=== PATIENT | male | born 1950 | race African-American/Black ===

== ENCOUNTER 2020-08-03 16:21 | Outpatient (REF) | payer OTHER, SELFPAY | END 2020-08-03 16:22 | disposition home or self-care (01) | LOC: HO.LAB 16:21 | PROVIDERS: Visit Provider Internal Medicine | DX: Z20.828 Contact with and (suspected) exposure to other viral communicable diseases (principal) | CPT/HCPCS: C9803; U0003 ==

== ENCOUNTER 2020-08-08 15:11 | Outpatient (REF) | payer OTHER, SELFPAY | END 2020-08-08 15:12 | disposition home or self-care (01) | LOC: HO.LAB 15:11 | PROVIDERS: Visit Provider Internal Medicine | DX: Z20.828 Contact with and (suspected) exposure to other viral communicable diseases (principal) | CPT/HCPCS: 36415; C9803; U0003 ==

== ENCOUNTER 2021-05-11 10:33 | Outpatient (REF) | payer OTHER, SELFPAY ==
[2021-05-11 10:35] LABS: MANUAL DIFF FLAG NO
[2021-05-11 10:53] LABS: Basophils Percent Auto 0.5 % (0-2); Eosinophils Absolute Auto 0.3 X10*3/uL (0.0-0.4); Eosinophils Percent Auto 4.5 % (0-4); Hematocrit 40.8 % (42-52); Hemoglobin 13.5 g/dl (14.0-18.0); Imm Gran Abs Auto 0.02 X10*3/uL (0.00-0.03); Imm Gran Pct Auto 0.3 % (0.0-0.4); Lymphocytes Absolute Auto 3.2 X10*3/uL (1.2-4.9); Lymphocytes Percent Auto 51.1 % (20-40); Mean Corpuscular HGB Conc 33.1 g/dl (31.0-36.0); Mean Corpuscular Hemoglobin 29.2 pg (27.0-33.0); Mean Corpuscular Volume 88.3 fL (80-98); Mean Platelet Volume 10.4 fL (9.4-12.4); Monocytes Absolute Auto 0.7 X10*3/uL (0.1-1.2); Monocytes Percent Auto 10.6 % (2-11); Platelet Count 183 X10*3/uL (160-400); Red Blood Count 4.62 X10*6/uL (4.60-5.80); Red Cell Distribution Width 12.6 % (11.0-16.0); White Blood Count 6.2 X10*3/uL (4.8-10.8)
[2021-05-11 11:00] LABS: Appearance Urine CLEAR; Color Urine YELLOW; Glucose Urine UA NEG (NEG); Leukocyte Esterase Urine NEG (NEG); Nitrite Urine NEG (NEG); Urine Blood NEG (NEG); Urine Ketones NEG (NEG); Urine Protein NEG (NEG-TRACE)
[2021-05-11 11:05] LABS: Alanine Aminotransferase 11 U/L (0-40); Albumin Level 3.9 g/dL (3.5-5.0); Alkaline Phosphatase 70 U/L (39-117); Anion Gap 12 (12-20); Aspartate Amino Transferase 19 U/L (5-37); Bilirubin Total 0.5 mg/dL (0.0-1.0); Blood Urea Nitrogen 12 mg/dL (9-16); Calcium 9.1 mg/dL (8.4-10.2); Carbon Dioxide 25 mmol/L (22-29); Chloride 108 mmol/L (96-108); Cholesterol 158 mg/dL; Estimated Glomerular Filt Rate > 60; Glucose Fasting 93 mg/dL (60-99); HDL Cholesterol 51 mg/dL; LDL Cholesterol Calculated 96 mg/dl; Sodium 141 mmol/L (135-145); Triglycerides 55 mg/dL
[2021-05-11 11:18] LABS: PSA,Total (Free>4and<10) 0.09 ng/mL (0.00-4.00); TSH reflex Free T4 1.72 uIU/mL (0.32-4.0)
== END 2021-05-11 10:34 | disposition home or self-care (01) ==
LOC: HO.LNP 10:33
PROVIDERS: Visit Provider Internal Medicine
DX: Z12.5 Encounter for screening for malignant neoplasm of prostate (principal); R79.89 Other specified abnormal findings of blood chemistry; C61 Malignant neoplasm of prostate; D72.820 Lymphocytosis (symptomatic)
CPT/HCPCS: 80053; 80061; 81003; 84153; 84443; 85025

== ENCOUNTER 2021-06-22 10:14 | Outpatient (REF) | payer SELFPAY ==
[2021-06-22 11:09] LABS: TSH reflex Free T4 1.33 uIU/mL (0.32-4.0)
== END 2021-06-22 10:15 | disposition home or self-care (01) ==
LOC: HO.LNP 10:14
PROVIDERS: Visit Provider Internal Medicine
DX: Z12.5 Encounter for screening for malignant neoplasm of prostate (principal); C61 Malignant neoplasm of prostate; R79.89 Other specified abnormal findings of blood chemistry
CPT/HCPCS: 84153; 84443

== ENCOUNTER 2022-07-08 11:19 | Outpatient (REF) | payer OTHER, SELFPAY ==
[2022-07-08 11:26] LABS: MANUAL DIFF FLAG NO
[2022-07-08 11:50] LABS: Appearance Urine Clear; Color Urine Yellow; Glucose Urine UA Negative (Negative); Leukocyte Esterase Urine Negative (Negative); Nitrite Urine Negative (Negative); PH 5.5 (5.0-9.0); Specific Gravity - Urine 1.025 (1.005-1.025); UMIC TRIGGER UA YES; Urine Blood Trace (Negative); Urine Ketones Negative (Negative); Urine Protein Negative (Neg-Trace)
[2022-07-08 11:54] LABS: Bacteria Urine None Seen (None Seen); Hyaline Casts Urine 0-2 /LPF (0-2); Squamous Epithelial Cell Urine 0-2 /HPF (0-2); WBC Urine 0-5 /HPF (0-5)
[2022-07-08 11:56] LABS: Basophils Percent Auto 0.5 % (0-2); Eosinophils Absolute Auto 0.1 X10*3/uL (0.0-0.4); Eosinophils Percent Auto 2.3 % (0-4); Hematocrit 43.4 % (42.0-52.0); Hemoglobin 14.3 g/dl (14.0-18.0); Imm Gran Abs Auto 0.01 X10*3/uL (0.00-0.03); Imm Gran Pct Auto 0.2 % (0.0-0.4); Lymphocytes Absolute Auto 2.6 X10*3/uL (1.2-4.9); Lymphocytes Percent Auto 47.1 % (20-40); Mean Corpuscular HGB Conc 32.9 g/dl (31.0-36.0); Mean Corpuscular Hemoglobin 29.6 pg (27.0-33.0); Mean Corpuscular Volume 89.9 fL (80.0-98.0); Mean Platelet Volume 10.4 fL (9.4-12.4); Monocytes Absolute Auto 0.6 X10*3/uL (0.1-1.2); Monocytes Percent Auto 10.1 % (2-11); Neutrophils Absolute Auto 2.2 x10*3/uL (2.0-8.3); Neutrophils Percent Auto 39.8 % (45-73); Platelet Count 208 X10*3/uL (160-400); Red Blood Count 4.83 X10*6/uL (4.60-5.80); Red Cell Distribution Width 13.5 % (11.0-16.0); White Blood Count 5.5 X10*3/uL (4.8-10.8)
[2022-07-08 12:48] LABS: Alanine Aminotransferase 17 U/L (0-40); Albumin Level 4.1 g/dL (3.5-5.0); Alkaline Phosphatase 74 U/L (39-117); Anion Gap 11 (12-20); Aspartate Amino Transferase 22 U/L (5-37); Bilirubin Total 0.5 mg/dL (0.0-1.0); Blood Urea Nitrogen 18 mg/dL (9-16); Calcium 8.7 mg/dL (8.4-10.2); Carbon Dioxide 25 mmol/L (22-29); Chloride 109 mmol/L (96-108); Cholesterol 168 mg/dL; Estimated Glomerular Filt Rate > 60; Glucose Fasting 107 mg/dL (60-99); HDL Cholesterol 57 mg/dL; LDL Cholesterol Calculated 99 mg/dl; PSA,Total (Free>4and<10) 0.24 ng/mL (0.00-4.00); Potassium 3.9 mmol/L (3.3-5.1); Sodium 141 mmol/L (135-145); Total Protein 7.3 g/dL (6.5-8.0); Triglycerides 62 mg/dL
== END 2022-07-08 11:20 | disposition home or self-care (01) ==
LOC: HO.LNP 11:19
PROVIDERS: Visit Provider Internal Medicine
DX: Z00.00 Encounter for general adult medical examination without abnormal findings (principal); D72.820 Lymphocytosis (symptomatic); C61 Malignant neoplasm of prostate
CPT/HCPCS: 80053; 80061; 81001; 84153; 85025

== ENCOUNTER 2022-11-11 10:25 | Outpatient (REF) | payer OTHER, SELFPAY ==
[2022-11-11 11:06] LABS: Appearance Urine Clear; Color Urine Yellow; Glucose Urine UA Negative (Negative); Leukocyte Esterase Urine Negative (Negative); Nitrite Urine Negative (Negative); PH 8.5 (5.0-9.0); Urine Blood Negative (Negative); Urine Ketones Negative (Negative); Urine Protein Negative (Neg-Trace)
[2022-11-11 11:09] LABS: Bacteria Urine None Seen (None Seen); Hyaline Casts Urine 0-2 /LPF (0-2); RBC Urine 0-2 /HPF (0-2); Squamous Epithelial Cell Urine 0-2 /HPF (0-2); WBC Urine 0-5 /HPF (0-5)
== END 2022-11-11 10:26 | disposition home or self-care (01) ==
LOC: HO.LNP 10:25
PROVIDERS: Visit Provider Internal Medicine
DX: R31.9 Hematuria, unspecified (principal)
CPT/HCPCS: 81001

== ENCOUNTER 2024-02-11 09:22 | Outpatient (REF) | payer MEDICARE, SELFPAY ==
[2024-02-11 09:51] LABS: MANUAL DIFF FLAG NO
[2024-02-11 10:15] LABS: Basophils Percent Auto 0.7 % (0-2); Eosinophils Absolute Auto 0.1 X10*3/uL (0.0-0.4); Hematocrit 42.1 % (42.0-52.0); Hemoglobin 14.3 g/dl (14.0-18.0); Imm Gran Abs Auto 0.02 X10*3/uL (0.00-0.03); Imm Gran Pct Auto 0.4 % (0.0-0.4); Lymphocytes Absolute Auto 2.1 X10*3/uL (1.2-4.9); Lymphocytes Percent Auto 46.1 % (20-40); Mean Corpuscular Hemoglobin 29.8 pg (27.0-33.0); Mean Corpuscular Volume 87.7 fL (80.0-98.0); Mean Platelet Volume 9.5 fL (9.4-12.4); Monocytes Absolute Auto 0.4 X10*3/uL (0.1-1.2); Monocytes Percent Auto 9.6 % (2-11); Neutrophils Absolute Auto 1.9 x10*3/uL (2.0-8.3); Neutrophils Percent Auto 40.2 % (45-73); Platelet Count 160 X10*3/uL (160-400); Red Cell Distribution Width 12.9 % (11.0-16.0); White Blood Count 4.6 X10*3/uL (4.8-10.8)
[2024-02-11 10:22] LABS: Appearance Urine Clear; Color Urine Yellow; Glucose Urine UA Negative (Negative); Leukocyte Esterase Urine Negative (Negative); Nitrite Urine Negative (Negative); PH 7.5 (5.0-9.0); Specific Gravity - Urine 1.015 (1.005-1.025); Urine Blood Negative (Negative); Urine Ketones Negative (Negative); Urine Protein Negative (Neg-Trace)
[2024-02-11 11:04] LABS: PSA,Total (Free>4and<10) 0.69 ng/mL (0.00-4.00)
[2024-02-11 11:10] LABS: Alanine Aminotransferase 17 U/L (0-40); Albumin Level 3.9 g/dL (3.5-5.0); Alkaline Phosphatase 67 U/L (39-117); Anion Gap 9 (12-20); Aspartate Amino Transferase 21 U/L (5-37); Bilirubin Total 0.8 mg/dL (0.0-1.0); Blood Urea Nitrogen 11 mg/dL (9-16); Carbon Dioxide 26 mmol/L (22-29); Chloride 109 mmol/L (96-108); Cholesterol 167 mg/dL (<200); Estimated Glomerular Filt Rate > 60; Glucose Fasting 94 mg/dL (60-99); HDL Cholesterol 54 mg/dL (>40); LDL Cholesterol Calculated 103 mg/dL (<100); Potassium 3.5 mmol/L (3.3-5.1); Sodium 140 mmol/L (135-145); Thyroid Stimulating Hormone 1.14 uIU/mL (0.32-4.0); Total Protein 7.3 g/dL (6.5-8.0); Triglycerides 50 mg/dL (<150); Vitamin D 25-OH Total 15.6 ng/mL (>30)
[2024-02-11 11:25] LABS: Folate 8.7 ng/mL (> or = 4.0); Vitamin B12 469 pg/mL (200-900)
== END 2024-02-11 09:23 | disposition home or self-care (01) ==
LOC: HO.LAB 09:22
PROVIDERS: PCP Internal Medicine; Visit Provider Internal Medicine
DX: C61 Malignant neoplasm of prostate (principal); Z12.5 Encounter for screening for malignant neoplasm of prostate; Z86.73 Personal history of transient ischemic attack (TIA), and cerebral infarction without residual deficits
CPT/HCPCS: 36415; 80053; 80061; 81003; 82306; 82607; 82746; 84153; 84443; 85025

== ENCOUNTER 2024-09-14 13:47 | Outpatient (AMB) | payer MEDICARE, SELFPAY ==
--- NOTE | 2024-09-14 13:50 | A.OFFPC_ITS ---
Vital Signs 09/14/24 13:55 Height 5 ft 7.5 in Weight 184 lb BMI 28.4 BP 156/66 H Blood Pressure Location Rt brachial Pulse 64 Pulse Source Pulse Oximeter Temp 98.1 F Pulse Oximetry (%) 95 Intake Visit Reasons: Medical clearance to become adoptive parent Intake Note: no other issues Allergies No Known Allergies [No Known Allergies*] Allergy (Verified 09/14/24 15:14) Medication List - Last Reconciled 09/14/24 by Lowell Harris MD levetiracetam 1,500 mg PO BID HPI Medical clearance to become adoptive parent HPI Details 73-year-old male presents to the office requesting an annual physical. He also wishes to get a form filled that allows him to be an adoptive parent. Patient is in the process of adopting a 4-year-old child who is his grandchild through his nephew. Patient had a hemorrhagic stroke with speech difficulties. This was followed by a seizure and currently is on Lamictal 1500 mg twice a day. Patient sees a neurologist at [facility]. Continues to get speech therapy. Patient has some loss of memory but is able to function and do all activities of daily living. Patient is able to drive and take care of himself independently. He is compliant with his medications. [facility] Medical History (Updated 09/14/24 @ 15:18 by Lowell Harris MD) Essential hypertension CVA (cerebrovascular accident due to intracerebral hemorrhage) Physical exam (Primary Care) Vital Signs: Last Vital Signs Temp 98.1 F 09/14/24 13:55 Pulse 64 09/14/24 13:55 BP 156/66 H 09/14/24 13:55 Pulse Ox 95 09/14/24 13:55 Care Plan Goal for BP management: Elevated blood pressure BMI result Body Mass Index 28.4 Const General: cooperative and healthy appearing Nutritional Appearance: well nourished Orientation/consciousness: patient oriented x3 Limitations: no limitations HENMT Head: Yes normal to inspection Eyes General: appearance normal, both eyes and all related structures Neck Neck: Yes normal visual inspection Chest Chest palpation & inspection: normal palpation of entire chest wall Resp Effort & Inspection: normal respiratory effort Neuro General: patient oriented x3 Coding Level of Care Code New Pt Level 3 (70265) New Pt Prev Care >65yr (90577) Diagnoses CVA (cerebrovascular accident due to intracerebral hemorrhage) I61.9 Essential hypertension I10 Annual physical exam Z00.00 Assessment & Plan Assessment & Plan (1) CVA (cerebrovascular accident due to intracerebral hemorrhage): Code(s): I61.9 - Nontraumatic intracerebral hemorrhage, unspecified Category: Medical Plan: Reassurance. Continue speech therapy. (2) Essential hypertension: Code(s): I10 - Essential (primary) hypertension Category: Medical Plan: Blood pressure is slightly elevated. Patient was advised to check blood pre ssures at home and returned to the office in 3 weeks. (3) Annual physical exam: Code(s): Z00.00 - Encounter for general adult medical examination without abnormal findings Plan: Blood work has been ordered, will call with the results. Orders: Orders Complete Blood Count no Diff Today I61.9 - Nontraumatic intracerebral hemorrhage, unspecified Lipid Panel Today I61.9 - Nontraumatic intracerebral hemorrhage, unspecified Liver Panel Today I61.9 - Nontraumatic intracerebral hemorrhage, unspecified Thyroid Stimulating Hormone Today I61.9 - Nontraumatic intracerebral hemorrhage, unspecified UA and rflx microscopic Today I61.9 - Nontraumatic intracerebral hemorrhage, unspecified Basic Metabolic Panel Today I61.9 - Nontraumatic intracerebral hemorrhage, unspecified Erythrocyte Sedimentation Rate Today I61.9 - Nontraumatic intracerebral hemorrhage, unspecified Prostate Specific Antigen Scr Today I61.9 - Nontraumatic intracerebral hemorrhage, unspecified
[2024-09-14 13:55] VITALS: BP 156/66; PULSE 64; TEMP 36.7; O2SAT 95; BMI 28.4
--- OUTSIDE RECORDS SUMMARY | 2024-09-14 14:49 | XMS_ITS ---
Author Organization Wilder Rico DO, FACP Address [address] [place] [address] [phone] Care Team Providers Care Machine Shorthand Reporter Name Role Phone Wilder Rico Primary Care Provider REASON FOR VISIT FYI Encounters Encounter Location Date Provider Diagnosis Wilder Rico DO, FACP [address] [place] [phone] 03/03/2024 Wilder Rico PLAN OF TREATMENT No Information
--- OUTSIDE RECORDS SUMMARY | 2024-09-14 14:49 | XMS_ITS | Patient Health Record ---
Author Organization Wilder Rico DO, [facility] Address [address] [place] [phone] Care Team Providers Care Cutter Grinder Operator Name Role Phone Wilder Rico Primary Care Provider [phone] ALLERGIES No Known Allergies RESULTS Component Value Reference Range Notes Complete Blood Count Auto Di ff Reviewed date:02/11/2024 10:23:39 AM Interpretation:Abnormal Performing Lab:[facility], [address] [place] [phone] Notes/Report: White Blood Count 4.6 4.8-10.8 X10*3/uL Red Blood Count 4.80 4.60-5.80 X10*6/uL Hemoglobin 14.3 14.0-18.0 g/dl Hematocrit 42.1 42.0-52.0 % Mean Corpuscular Volume 87.7 80.0-98.0 fL Mean Corpuscular Hemoglobin 29.8 27.0-33.0 pg Mean Corpuscular HGB Conc 34.0 31.0-36.0 g/dl Red Cell Distribution Width 12.9 11.0-16.0 % Platelet Count 160 160-400 X10*3/uL Mean Platelet Volume 9.5 9.4-12.4 fL Neutrophils Percent Auto 40.2 45-73 % Imm Gran Pct Auto 0.4 0.0-0.4 % Lymphocytes Percent Auto 46.1 20-40 % Monocytes Percent Auto 9.6 2-11 % Eosinophils Percent Auto 3.0 0-4 % Basophils Percent Auto 0.7 0-2 % NRBC Pct Auto 0.0 0.0-0.2 /100WBC Neutrophils Absolute Auto 1.9 2.0-8.3 x10*3/u L Imm Gran Abs Auto 0.02 0.00-0.03 X10*3/uL Lymphocytes Absolute Auto 2.1 1.2-4.9 X10*3/u L Monocytes Absolute Auto 0.4 0.1-1.2 X10*3/uL Eosinophils Absolute Auto 0.1 0.0-0.4 X10*3/u L Basophils Absolute Auto 0.0 0.0-0.2 X10*3/uL NRBC Abs Auto 0.000 0.0-0.012 X10*3/uL Urinalysis Reviewed date:02/11/2024 11:22:05 AM Interpretation:Negative Performing Lab:[facility], [address] [place] [phone] Notes/Report: Color Urine Yellow Appearance Urine Clear PH 7.5 5.0-9.0 Glucose Urine UA Negative Negative mg/dL Urine Blood Negative Negative Specific Hubbell - Urine 1.015 1.005-1.025 Urine Protein Negative Neg-Trace mg/dL Urine Ketones Negative Negative mg/dL Nitrite Urine Negative Negative Leukocyte Esterase Urine Negative Negative Comprehensive [place]. Panel Fa st Reviewed date:02/11/2024 11:22:05 AM Interpretation:Abnormal Performing Lab:[facility], [address] [place] [phone] Notes/Report: Sodium 140 135-145 mmol/L Potassium 3.5 3.3-5.1 mmol/L Chloride 109 96-108 mmol/L Carbon Dioxide 26 22-29 mmol/L Anion Gap 9 12-20 Blood Urea Nitrogen 11 9-16 mg/dL Creatinine 0.89 0.5-1.4 mg/dL Estimated Glomerular Filt Rate > 60 NOTE: For -Kenyan individuals, multiply the result by 1.210. Chronic Kidney Disease: Estimated GFR < 60 mL/min/1.73m2 Severe Kidney Disease: Estimated GFR < 15 mL/min/1.73m2 Glucose Fasting 94 60-99 mg/dL Calcium 9.0 8.4-10.2 mg/dL Bilirubin Total 0.8 0.0-1.0 mg/dL Aspartate Amino Transferase 21 5-37 U/L Alanine Aminotransferase 17 0-40 U/L Total Protein 7.3 6.5-8.0 g/dL Albumin Level 3.9 3.5-5.0 g/dL Alkaline Phosphatase 67 39-117 U/L Lipid Panel Reviewed date:02/11/2024 11:22:05 AM Interpretation:Normal Performing Lab:[facility], [address] [place] [phone] Notes/Report: Triglycerides 50 <150 mg/dL Desirable Triglyceride: less than 150 mg/dL Borderline High Triglyceride 150-199 mg/dL High Triglyceride: 200-499 mg/dL Very High Triglyceride: greater than or equal to 5OO mg/dL Cholesterol 167 <200 mg/dL Desirable Cholesterol: less than 200 mg/dL Borderline High Cholesterol: 200-239 mg/dL High Cholesterol: greater than 239 mg/dL LDL Cholesterol Calculated 103 <100 mg/dL Desirable LDL: less than 100 mg/dL Near Optimal/Above Optimal LDL: 110-129 mg/dL Borderline High LDL: 130-159 mg/dL High LDL: 160-189 mg/dL Very High LDL: greater than or equal to 190 mg/dL HDL Cholesterol 54 >40 mg/dL Desirable HDL: greater than 40 mg/dL Note: This HDL assay may give artificially low results in patients with liver disease. PSA,Total (Free>4and<10) Reviewed date:02/11/2024 11:22:05 AM Interpretation:Normal Performing Lab:[facility], [address] [place] [phone] Notes/Report: PSA,Total (Free>4and<10) 0.69 0.00-4.00 ng/mL A Free PSA was not performed: The percentage of Free PSA can be used to enhance the differentiation of prostate cancer from benign prostatic disease in subjects whose PSA levels are between 4.0 and 10.0 ng/mL. For subjects whose PSA levels are below 4.0 or above 10.0 ng/mL, the risk of prostate cancer is determined on the basis of the PSA alone. Therefore the % Free PSA is recommended only for those subjects whose PSA levels are between 4.0 and 10.0 ng/mL. PSA methodology: [employer] Al[employer] i Chemiluminescent Microparticle Immunoassay (CMIA) Vitamin B12 and Folate Reviewed date:02/11/2024 11:32:51 AM Interpretation:Normal Performing Lab:[facility], [address] [place] [phone] Notes/Report: Vitamin B12 469 200-900 pg/mL NORMAL 200-900 PG/ML INDETERMINATE 160-199 PG/ML DEFICIENT < 160 PG/ML Folate 8.7 > or = 4.0 ng/mL Reference Values: > or = 4.0 ng/mL < 4.0 ng/mL suggests folate deficiency Methotrexate, aminopterin and folinic acid (leucovorin) are chemotherapeutic agents whose molecular structures are similar to folate; therefore, the Seamer folate assay cannot be used for patients using these drugs. Vitamin D 25-OH Total Reviewed date:02/11/2024 11:22:21 AM Interpretation:Abnormal Performing Lab:[address] [phone] Notes/Report: Vitamin D 25-OH Total 15.6 >30 ng/mL Health Based Reference Values* < 20 ng/mL Deficient 20-30 ng/mL Insufficient > 30 ng/mL Sufficient *Jean Paul JOYA. N Engl J Med. 2007;357:266-280 Care must be taken in interpreting Vitamin D results from different laboratories and methodologies. Published data demonstrated that results from patients undergoing hemodialysis may show a negative bias when tested with various automated 25-OH vitamin D assays when compared to LC-MS/MS. When testing samples from patients whose predominant form of Vitamin D is Vitamin D2, such as patients receiving Vitamin D2 supplementation, results that are subtherapeutic should be confirmed with another method such as LC-MS/MS. Thyroid Stimulating Hormone Reviewed date:02/11/2024 11:22:05 AM Interpretation:Normal Performing Lab:[address] [phone] Notes/Report: Thyroid Stimulating Hormone 1.14 0.32-4.0 uIU/ mL TSH 3rd Generation ([facility]) REASON FOR REFERRAL Reason Prostate cancer s/p prostatectomy Low but not undetectable PSA Diagnosis 1 Prostate cancer (C61 ) Referral Organization Wilder Carter, FACP Referring Provider First Name Wilder Referring Provider Last Name Trisha Referring Provider Speciality Internal M edicine Referred Provider Misael Dash Referred Provider Specialty Urology General Notes .Crissy Scott 03/02/20 24 01:08:02 PM EDT > Faxed referral prior to scheduling, Florinda Aguilar 03/03/2024 11:51:32 AM EDT > REFERRAL TO NEXT AVAILABLE PROVIDER. ADDITIONAL RECORDS TO FOLLOW BY SEPARATE FAX, Florinda Aguilar 03/03/2024 04:09:46 PM EDT > referral re-faxed REFERRAL TO NEXT AVAILABLE PROVIDER. ADDITIONAL RECORDS TO FOLLOW BY SEPARATE FAXGaFlorinda quezada 03/03/2024 11:20:46 AM EDT > patient has been discharged from Dr. Barone's practice for non-compliance. Alternate referral?, Wilder Rico 03/03/2024 11:40:57 AM EDT > Jeff KOHLI Joan 03/03/2024 11:53:22 AM EDT > referral faxed; specialist's office will call patient to schedule appointment; patient aware. Referral Priority Routine Referral Appointment Date 04/08/2024 Reason seizure disorder Diagnosis 1 Seizure disorder (G4 0.909) Referral Organization Wilder Carter, [facility] Referring Provider First Name Wilder Referring Provider Last Name Trisha Referring Provider Speciality Internal M edicine Referred Provider Agus Serrano Referred Provider Specialty Neurology General Notes Crissy Scott 03:58:05 PM EDT > Referral faxed prior to scheduling, Florinda Aguilar 06/02/2024 11:04:28 AM EDT > patient was n/s for 05/04 appointment. [facility] will call this office with Don's new appointment. Today's notes faxed.Jeff Joan 06/02/2024 11:28:01 AM EDT > referral faxed to Referral Priority Routine MEDICATIONS Medication SIG (Take, Route, Fr equency, Duration) Notes Start Date End Date Status levETIRAcetam 750 MG 2 tablets Orally Twice a day Active IMMUNIZATIONS Vaccine Route Administration Date Status Comme nts flu vaccine Unknown 07/11/2016 Administered COVID-19 Pfizer BioNTech Unknown 11/04/2020 Administere d COVID-19 Pfizer BioNTech Unknown 07/26/2021 Administere d Shingrix Unknown 03/06/2023 Administered Pneumococcal - PPSV23 Unknown 02/21/2020 Administered Influnza High Dose Quad Unknown 06/30/2020 Administered Influenza High Dose Unknown 04/26/2021 Administered PCV 20 Unknown 03/06/2023 Administered flu vaccine Unknown 05/12/2018 Administered Influenza High Dose Unknown 06/24/2019 Administered COVID-19 Pfizer BioNTech Unknown 11/26/2020 Administere d SOCIAL HISTORY Tobacco Use: Social History Observation Description Date Details (start date - stop date) Never Smoker NA - NA Sex Assigned At : Social History Observation Description Sex Assigned At Unknown Tobacco Use/Smoking Question Answer Notes Patient is a nonsmoker Additional Findings: Tobacco Non-User Cu rrent non-smoker, currently using no form of tobacco Alcohol Screen Question Answer Notes Did you have a drink containing alcohol in the p ast year? 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) Active confirmed 573606225 Problem Cataract of both eyes, unspecified cataract type (H26.9) Active confirmed 93287813 Problem Seizure disorder (G40.909) Active confirmed Seizure disorder (889031033) VITAL SIGNS Blood pressure diastolic 60 mm Hg 06/02/2024 Height 67.75 in 06/02/2024 Blood pressure systolic 104 mm Hg 06/02/2024 Weight 180 lbs 06/02/2024 BMI 27.57 kg/m2 06/02/2024 Encounters Encounter Location Date Provider Diagnosis Wilder Rico DO, [facility] [address] [place], [place] [phone] 03/02/2024 Wilder Rico Prostate cancer C61 ; Secondary seizure disorder G40.909 ; History of CVA (cerebrovascular accident) Z86.73 and Cataract of both eyes, unspecified cataract type H26.9 Wilder Rico DO, [facility] [address] [place], [place] [phone] 06/02/2024 Wilder Rico Prostate cancer C61 and Secondary seizure disorder G40.909 Wilder Rico DO, [facility] [address] [place], [place] [phone] 12/23/2023 Wilder Rico DO, [facility] [address] [place], [place] [phone] 01/13/2024 Wilder Rico DO, [facility] [address] [place], [place] [phone] 02/03/2024 Wilder Rico History of CVA (cerebrovascular accident) Z86.73 and Prostate cancer C61 Wilder Rico DO [facility] [address] [place], [place] [phone] 12/05/2023 Wilder Rico DO, [facility] [address] [place], [place] [phone] 03/03/2024 Wilder Rico DO, [facility] [address] [place], [place] [phone] 06/04/2024 Wilder Rico ASSESSMENTS Encounter Date Diagnosis Assessment Notes Treatment Notes Treatment Clinical Notes 03/02/2024 Prostate cancer (ICD-10 - C61) Erik is s/p prostatectomy. His PSA is low but not undetectable. Will refer to Urology. 03/02/2024 Secondary seizure disorder (ICD-10 - G40.909) Refer to [facility] 06/02/2024 Prostate cancer (ICD-10 - C61) Follow up with Urology. 06/02/2024 Secondary seizure disorder (ICD-10 - G40.909) Follow up with Neurology. 02/03/2024 Prostate cancer (ICD-10 - C61) Will obtain old records to review 02/03/2024 History of CVA (cerebrovascular accident) (ICD-10 - Z86.73) Will obtain old records to review 03/02/2024 History of CVA (cerebrovascular accident) (ICD-10 - Z86.73) Refer to [facility] 03/02/2024 Cataract of both eyes, unspecified cataract type (ICD-10 - H26.9) Erik is an appropriate candidate for the proposed surgical procedures and is medically cleared for surgery. He should take his seizure medication as prescribed 03/02/2024 Other Advise multivit anderson once a day PLAN OF TREATMENT Pending Test Test Name Order Date PSA, total 06/02/2024 Insurance Providers Payer Name Payer Address Payer Phone Subscriber Number Group Number Insured Name Patient Relationship to Insured Coverage Start Date Coverage End Date [employer] [address] [place] [phone] [id number] Erik Reynolds Self - patient is the insured MEDICARE [address] [place] [phone] [id number] Erik Reynolds Self - patient is the insured MEDICAL (GENERAL) HISTORY Medical History History ICD Code cerebrovascular accident prostate cancer s/p prostatectomy hypertension currently on no medication seizure disorder memory loss
--- OUTSIDE RECORDS SUMMARY | 2024-09-14 14:49 | XMS_ITS ---
Author Organization William Samuel MD Address [address] [place] [phone] Care Team Providers Care Cotton Opener Name Role Phone William Samuel Primary Care Provider [phone] REASON FOR VISIT yearly labs Encounters Encounter Location Date Provider Diagnosis William Samuel MD [address] [place] [phone] 10/24/2023 William Samuel Plan Of Treatment No Information Progress Notes * RODOLFOErikDOB:1950 ( 73 yo M)Acc No.[id number]:10/24/2023 Progress Note Patient:?Erik ECHOLS Provider:?William Samuel MD :1950???Age:73 Y???Sex:Male Tano e:10/24/2023 Address:[address] [place] [address] Subjective: * Chief Complaints: * ???1. Yearly labs. * Medical History:? Objective: * Vitals:? Assessment: Plan: * Treatment: * * The named appointment provid er may or may not be the originator of this progress note, and it is not deemed complete until electronically signed by the appointment provider. Sign off status: Pending * Provider:?William Samuel MD Date:?0 10/24/2023 Generated for Printi ng/Fadestinyg/eTransmitting on:?09/14/2024 02:49 PM EST
--- OUTSIDE RECORDS SUMMARY | 2024-09-14 14:49 | XMS_ITS ---
Author Organization Wilder Rico DO, FACP Address [address] [place] [phone] Care Team Providers Care Counter Sales Representative Name Role Phone Wilder Rico Primary Care Provider REASON FOR VISIT Message to self Encounters Encounter Location Date Provider Diagnosis Wilder Rico DO, FACP [address] [place] [phone] 06/04/2024 Wilder Rico PLAN OF TREATMENT No Information
--- OUTSIDE RECORDS SUMMARY | 2024-09-14 14:50 | XMS_ITS | Clinical Summary ---
Author Organization [facility] Address [address] [place] [address] Care Team Providers Care Medical Receptionist Biller Name Role Phone William Samuel MD Primary Care Provider [phone] Allergies No known active allergies Medications No known medications Social History Tobacco Use Types Packs/Day Years Used Date Smoking Tobacco: Never Smokeless Tobacco: Never Alcohol Use Standard Drinks/Week Comments No 0 (1 standard drink = 0.6 oz pur e alcohol) Sex and Gender Information Value Date Recorded Sex Assigned at Not on file Gender Identity Not on file Sexual Orientation Not on file Last Filed Vital Signs Vital Sign Reading Time Taken Comments Blood Pressure 144/77 03/16/2018 12:54 PM EDT Pulse 66 03/16/2018 12:54 PM EDT Temperature 36.8 ??C (98.2 ??F) 03/16/2018 12:54 PM E DT Respiratory Rate 17 03/16/2018 12:54 PM EDT Oxygen Saturation 98% 03/16/2018 12:54 PM EDT Inhaled Oxygen Concentration - - Weight 77.1 kg (170 lb) 03/16/2018 12:54 PM EDT Height - - Body Mass Index - - Plan of Treatment Not on file Care Teams Medical Receptionist Biller Relationship Specialty Start Date End Date William Samuel MD [address] [place] [phone] PCP - General Internal Medicine 03/16/18
--- OUTSIDE RECORDS SUMMARY | 2024-09-14 14:50 | XMS_ITS ---
Author Organization William Samuel MD Address [address] [place] [phone] Care Team Providers Care Scoop Operator Name Role Phone William Samuel Primary Care Provider REASON FOR VISIT annual visit Encounters Encounter Location Date Provider Diagnosis William Samuel MD [address] [place] [phone] 11/14/2023 William Samuel Plan Of Treatment No Information Progress Notes * RODOLFOErikDOB:1950 ( 73 yo M)Acc No.[id number]:11/14/2023 Progress Notes Patient:?Erik ECHOLS Provider:?William Samuel MD :1950???Age:73 Y???Sex:Male Tano e:11/14/2023 Address:[address] [place] [address] Subjective: * Chief Complaints: * ???1. Annual visit. * Medical History:? Objective: * Vitals:? Assessment: Plan: * Treatment: * * The named appointment provid er may or may not be the originator of this progress note, and it is not deemed complete until electronically signed by the appointment provider. Sign off status: Pending * Provider:?William Samuel MD Date:?0 11/14/2023 Generated for Printi ng/Fakay/eTransmitting on:?09/14/2024 02:49 PM EST
--- OUTSIDE RECORDS SUMMARY | 2024-09-14 14:50 | XMS_ITS ---
Author Organization Wilder Rico DO [facility] Address [address] [place] [phone] Care Team Providers Care Virginia Line Attendant Name Role Phone Wilder Rico Primary Care Provider ALLERGIES No Known Allergies REASON FOR VISIT 3 month f/u, Follow up prostate cancer s/p prostatectomy MEDICATIONS Medication SIG (Take, Route, Fr equency, Duration) Notes Start Date End Date Status levETIRAcetam 750 MG 2 tablets Orally Twice a day Active SOCIAL HISTORY Tobacco Use: Social History Observation [...] ast year? No Points 0 Interpretation Negative VITAL SIGNS BMI 27.57 kg/m2 06/02/2024 Blood pressure systolic 104 mm Hg 06/02/20 24 Blood pressure diastolic 60 mm Hg 024 Height 67.75 in 06/02/2024 Weight 180 lbs 06/02/2024 Encounters Encounter Location Date Provider Diagnosis Wilder Rico DO, [address] [phone] 06/02/2024 Wilder Rico Prostate cancer C61 and Secondary seizure disorder G40.909 ASSESSMENTS Encounter Date Diagnosis Assessment Notes Treatment Notes Treatment Clinical Notes 06/02/2024 Prostate cancer (ICD-10 - C61) Follow up with Urology. 06/02/2024 Secondary seizure disorder (ICD-10 - G40.909) Follow up with Neurology. PLAN OF TREATMENT Medication Medication Name Sig Start Date Stop Date Notes levETIRAcetam 750 MG 2 tablets Orally Twice a day Treatment Notes Assessment Notes Prostate cancer Follow up with Urolo gy. Secondary seizure disorder Follow up wit h Neurology. Pending Test Test Name Order Date PSA, total 06/02/2024 Next Appt Details Follow Up: 4 Months, Reason: follow up visit Progress Notes * Examination Category Sub-Category Detail Notes General Examination GENERAL APPEARANCE: in no ac geovanna distress, well developed, well nourished HEAD: normocephalic, atrau matic HEART: no murmurs, regular rate and rhythm, S1, S2 normal LUNGS: clear to auscultatio n bilaterally ABDOMEN: normal, bowel sounds present, soft, nontender, nondistended SKIN: warm and dry EXTREMITIES: no edema PSYCH: alert, oriented, cog nitive function intact
--- OUTSIDE RECORDS SUMMARY | 2024-09-14 14:50 | XMS_ITS ---
Author Organization William Samuel MD Address [address] [place] [phone] Care Team Providers Care Personal Insurance Advisor Name Role Phone William Samuel Primary Care Provider REASON FOR VISIT Medical Records Encounters Encounter Location Date Provider Diagnosis William Samuel MD [address] [place] [address] [phone] 02/16/2024 William Samuel Plan Of Treatment No Information Progress Notes * Erik ECHOLSDOB:1950 ( 73 yo M)Acc No.[id number]:02/16/2024 Patient:?Erik Echols :1950???Age:73 Y???Sex:Male Address:[address] [place] [address], [address] * true * Date:? Generated for Thu jain/Dexter/eTransmitting on:?09/14/2024 02:49 PM EST
--- OUTSIDE RECORDS SUMMARY | 2024-09-14 14:50 | XMS_ITS | Clinical Summary ---
Author Organization [facility] it Address [address] [place] [address] Care Team Providers Care Assistant Spa Manager Name Role Phone William Samuel MD Primary Care Provider Unav ailable Social History Tobacco Use Types Packs/Day Years Used Date Smoking Tobacco: Never Assessed Sex and Gender Information Value Date Recorded Sex Assigned at Not on file Legal Sex Male 4:18 PM EST Gender Identity Not on file Sexual Orientation Not on file Plan of Treatment Health Maintenance Due Date Last Done Comments Pneumococcal Vaccine: 50+ Ye ars (1 of 1 - PCV) 10/07/2001 Zoster Vaccines (1 of 2) 10/07/2001 DTaP,Tdap,and Td Vaccines (2 - Td or Tdap) 12/16/2020 12/16/2010 Abdominal Aortic Aneurysm (A AA) Screen 07/03/2022 Cholesterol Screening (Lipid Panel) 07/03/2022 Colorectal Cancer Screening: Colonoscopy 07/03/2022 Depression Screening 07/03/2022 Falls Risk Assessment 07/03/2022 Hepatitis C Screening 07/03/2022 Social Influencers of Health Screening 07/03/2022 COVID-19 Vaccine ( - 2023-2 5 season) 2024 Influenza Vaccine (#1) 2024 RSV Immunization Patients 60 + Years Old (1 - 1-dose 75+ series) 10/07/2026 HIB Vaccines Aged Out No longer eligi ble based on patient's age to complete this topic HPV Vaccines Aged Out No longer eligi ble based on patient's age to complete this topic Hepatitis A Vaccines Aged Out No long er eligible based on patient's age to complete this topic Hepatitis B Vaccines Aged Out No long er eligible based on patient's age to complete this topic IPV Vaccines Aged Out No longer eligi ble based on patient's age to complete this topic MMR Vaccines Aged Out No longer eligi ble based on patient's age to complete this topic Meningococcal ACWY Vaccine Aged Out N o longer eligible based on patient's age to complete this topic Meningococcal B Vacine Aged Out No lo nger eligible based on patient's age to complete this topic RSV Immunization Patients Un reagan 20 months Aged Out No longer eligible b ased on patient's age to complete this topic Varicella Vaccines Aged Out No longer eligible based on patient's age to complete this topic Care Teams Assistant Spa Manager Relationship Specialty Start Date End Date William Samuel MD [address] [place] [address] PCP - General Internal Medicine 03/16/18
--- OUTSIDE RECORDS SUMMARY | 2024-09-14 14:51 | XMS_ITS | Patient Health Record ---
Author Organization William Samuel MD Address [address] [place] [phone] Care Team Providers Care Electrical Appliance Preparer Name Role Phone William Samuel Primary Care Provider Allergies No Known Allergies Reason For Referral No Information Medications Medication SIG (Take, Route, Frequency, Duration) Notes Start Date End Date Status Ocuflox 0.3 % 1 drop into affected eye Ophthalmic Four times a day for 7 days 11/13/2017 Not-Takin g ProAir HFA 108 (90 Base) MCG/ACT 2 puffs as needed Inhalation every 6 hrs for 30 days 11/13/2017 Not-Taking levETIRAcetam 750 MG 2 tablet Orally Twi ce a day Active Betamethasone Dipropionate Aug 0.05 % 1 application Externally Once a day for 14 days 10/28/2022 Not-Taking Immunizations Vaccine Route Administration Date Status Comme nts zFluzone Quadrivalent IM Intramuscular 07/06/2015 Administ ered Fluarix Quadrivalent IM Intramuscular 07/11/2016 Administe red Fluarix Quadrivalent IM Intramuscular 05/12/2018 Administe red Influenza High Dose IM Intramuscular 06/24/2019 Administer ed PPSV23 (Pnemovax) IM Intramuscular 02/21/2020 Administered SARS-COV-2 Pfizer Unknown 11/04/2020 Administered SARS-COV-2 Pfizer Unknown 11/26/2020 Administered Influenza High Dose IM Intramuscular 04/26/2021 Administer ed Social History Tobacco Use/Smoking Question Answer Notes Additional Findings: Tobacco Non-User Cu rrent non-smoker, currently using no form of tobacco Alcohol Screen Question Answer Notes Did you have a drink containing alcohol in the p ast year? 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) Active confirmed Problem 99429215 Kidney stone on left side (N20.0) Active confirmed Problem 865108958 Cerebral hemorrhage (I61.9) Active confirmed Vital Signs Blood pressure diastolic 86 mm Hg 09/30/2023 joselyn ght is up 4 pounds since 03-25-23 Height 68 in 09/30/2023 weight is up 4 pounds since 03-25-23 Blood pressure systolic 142 mm Hg 09/30/2023 weig ht is up 4 pounds since 03-25-23 Weight 184 lbs 09/30/2023 weight is up 4 pounds since 03-25-23 BMI 27.97 kg/m2 09/30/2023 weight is up 4 pounds since 03-25-23 Encounters Encounter Location Date Provider Diagnosis William Samuel MD [address] [place] [phone] 09/30/2023 William Samuel Herpes zoster with complication B02.8 and Borderline hypertension R03.0 William Samuel MD [address] [place] [address] [id number] 10/13/2023 William Samuel MD [address] [place] [address] [id number] 10/13/2023 William Samuel MD [address] [place] [address] [phone] 02/16/2024 William Samuel Assessments Encounter Date Diagnosis (ICD Code) Assessment Notes Treatment Notes Treatment Clinical Notes Section Notes 09/30/2023 Herpes zoster with complication (ICD-10 - B02.8) appears to be healing zoster by the dermatome distribution 09/30/2023 Borderline hypertension (ICD-10 - R03.0) will recheck in one month Plan Of Treatment Future Test Test Name Order Date XR CHEST 2 VIEW PA & LAT 09/23/2019 Insurance Providers Payer Name Payer Address Payer Phone Subscriber Number Group Number Insured Name Patient Relationship to Insured Coverage Start Date Coverage End Date [employer] [address] [place] [address] [id number] Erik Reynolds Self - patient is the insured Medical (General) History Medical History History ICD Code Colonoscopy - 01/22/16 w/Dr. Mariusz love at 11 yrs
== END 2024-09-14 14:20 | disposition home or self-care (01) ==
LOC: HO.HMCSH 13:47
PROVIDERS: PCP Internal Medicine; Visit Provider Internal Medicine
DX: Z00.00 Encounter for general adult medical examination without abnormal findings (principal); I61.9 Nontraumatic intracerebral hemorrhage, unspecified; I10 Essential (primary) hypertension

== ENCOUNTER → 2024-09-14 13:47 | Outpatient (BNVA) | payer MEDICARE, SELFPAY | PROVIDERS: PCP Internal Medicine; Visit Provider Internal Medicine | DX: Z00.01 Encounter for general adult medical examination with abnormal findings (principal); I10 Essential (primary) hypertension; I61.9 Nontraumatic intracerebral hemorrhage, unspecified | CPT/HCPCS: 99212; 99387 ==

== ENCOUNTER 2024-10-06 10:55 | Outpatient (AMB) | payer MEDICARE, SELFPAY ==
--- NOTE | 2024-10-06 11:03 | MHC.PC.OV ---
Vital Signs 10/06/24 11:06 Height 5 ft 7 in Weight 183 lb BMI 28.7 BP 140/78 H Blood Pressure Location Rt brachial Pulse 76 Pulse Source Pulse Oximeter Temp 97.7 F Pulse Oximetry (%) 98 Intake Visit Reasons: f/u Intake Note: no other issues Allergies No Known Allergies [No Known Allergies*] Allergy (Verified 10/06/24 14:16) Medication List - Last Reconciled 10/06/24 by Lowell Harris MD levetiracetam 1,500 mg PO BID lisinopril 10 mg PO DAILY HPI f/u HPI Details 73 yr old male presents to the office for a follow up visit. Since last OV he did not get blood work done. As requested, he did not record BP readings at home. Comes to the office alone. Reports he is at baseline state of health. Came to the office driving his car. Walked in unassisted. [facility] Medical History (Updated 10/04/24 @ 10:05 by Alma Santos PA-C) Memory loss Seizure disorder History of prostate cancer Essential hypertension CVA (cerebrovascular accident due to intracerebral hemorrhage) Physical exam (Primary Care) Vital Signs: Last Vital Signs Temp 97.7 F 10/06/24 11:06 Pulse 76 10/06/24 11:06 BP 140/78 H 10/06/24 11:06 Pulse Ox 98 10/06/24 11:06 Care Plan Goal for BP management: BP in range. Medication started. BMI result Body Mass Index 28.7 Const General: cooperative and healthy appearing Nutritional Appearance: well nourished Orientation/consciousness: patient oriented x3 Limitations: no limitations HENMT Head: Yes normal to inspection Eyes General: appearance normal, both eyes and all related structures Neck Neck: Yes normal visual inspection Chest Chest palpation & inspection: normal palpation of entire chest wall Resp Effort & Inspection: normal respiratory effort Neuro General: patient oriented x3 Coding Level of Care Code Est Pt Level 4 (03720) Est Pt Prev Care >65y(84924) Diagnoses Essential hypertension I10 Assessment & Plan Assessment & Plan (1) Essential hypertension: Code(s): I10 - Essential (primary) hypertension Category: Medical Plan: Lisinopril started. Encouraged patient to get blood work done. Medications: New lisinopril 10 mg PO DAILY 90 tabs 1RF
[2024-10-06 11:06] VITALS: BP 140/78; PULSE 76; TEMP 36.5; O2SAT 98; BMI 28.7
--- OUTSIDE RECORDS SUMMARY | 2024-10-06 13:14 | XMS_ITS | Clinical Summary ---
Author Organization [facility] Address [address] [place] [address] Care Team Providers Care Carbonator Name Role Phone William Samuel MD Primary Care Provider [phone] Allergies No known active allergies Medications No [...] of Treatment Not on file Care Teams Carbonator Relationship Specialty Start Date End Date William Samuel MD [address] [place] [phone] PCP - General Internal Medicine 03/16/18
--- OUTSIDE RECORDS SUMMARY | 2024-10-06 13:14 | XMS_ITS ---
Author Organization William Samuel MD Address [address] [place] [phone] Care Team Providers Care Investment Banking Associate Name Role Phone William Samuel Primary Care Provider [phone] REASON FOR VISIT yearly labs Encounters Encounter Location Date Provider Diagnosis William Samuel MD [address] [place] [address] [phone] 10/24/2023 William Samuel Plan Of Treatment No Information Progress Notes * RODOLFOErikDOB:1950 ( 73 yo M)Acc No.[id number]:10/24/2023 Progress Note Patient:?Erik ECHOLS Provider:?William Samuel MD :1950???Age:73 Y???Sex:Male Tano e:10/24/2023 Address:[address] [place] [address] Subjective: * Chief Complaints: * ???1. Yearly labs. * Medical History:? Objective: * Vitals:? Assessment: Plan: * Treatment: * * The named appointment provid er may or may not be the originator of this progress note, and it is not deemed complete until electronically signed by the appointment provider. Sign off status: Pending * Provider:?William Samuel MD Date:?0 10/24/2023 Generated for Printi ng/Fadestinyg/eTransmitting on:?10/06/2024 01:14 PM EST
--- OUTSIDE RECORDS SUMMARY | 2024-10-06 13:14 | XMS_ITS ---
Author Organization William Samuel MD Address [address] [place] [phone] Care Team Providers Care Set Up Worker Name Role Phone William Samuel Primary Care Provider REASON FOR VISIT annual visit Encounters Encounter Location Date Provider Diagnosis William Samuel MD [address] [place] [phone] 11/14/2023 William Samuel Plan Of Treatment No Information Progress Notes * RODOLFOErikDOB:1950 ( 73 yo M)Acc No.[id number]:11/14/2023 Progress Notes Patient:?Erik ECHOLS Provider:?William Samuel MD :1950???Age:73 Y???Sex:Male Tano e:11/14/2023 Address:[address] [place] [address] Subjective: * Chief Complaints: * ???1. Annual visit. * Medical History:? Objective: * Vitals:? Assessment: Plan: * Treatment: * * The named appointment provid er may or may not be the originator of this progress note, and it is not deemed complete until electronically signed by the appointment provider. Sign off status: Pending * Provider:?William Samuel MD Date:?0 11/14/2023 Generated for Printi ng/Fakay/eTransmitting on:?10/06/2024 01:14 PM EST
--- OUTSIDE RECORDS SUMMARY | 2024-10-06 13:14 | XMS_ITS ---
Author Organization William Samuel MD Address [address] [place] [phone] Care Team Providers Care Design Director Name Role Phone William Samuel Primary Care Provider REASON FOR VISIT Medical Records Encounters Encounter Location Date Provider Diagnosis William Samuel MD [address] [place] [address] [phone] 02/16/2024 William Samuel Plan Of Treatment No Information Progress Notes * Erik ECHOLSDOB:1950 ( 73 yo M)Acc No.[id number]:02/16/2024 Patient:?Erik Echols :1950???Age:73 Y???Sex:Male Address:[address] [place] [address], [phone] * true * Date:? Generated for Thu jain/Dexter/eTransmitting on:?10/06/2024 01:14 PM EST
--- OUTSIDE RECORDS SUMMARY | 2024-10-06 13:15 | XMS_ITS | Continuity of Care Document ---
Author Organization [facility] Address [address] [facility], [address] Floor, [address] [place] [phone] Care Team Providers Care Lime Kiln Worker Name Role Phone Wilder Rico DO Primary Care Physician [phone] Encounter [facility] Date(s): 09/01/24 - 10/01/24 [facility] [address] [facility] [address], [address] [place] [phone]- Encounter Type: Triage Allergies, Adverse Reactions, Alerts No Known Allergies Immunizations Given and Recorded Vaccine Date Status Refusal Reason tetanus-diphtheria toxoids (Td) 12/16/10 Given Medications bisacodyl 10 mg rectal suppository 1 supp = 10 mg, Rectally, 2 times a day, PRN Constipation, 0 Refills, Maintenance, 12/15/20 3:45:00 PM EDT, Suppository, Partial fill upon patient request if the prescription is for a schedule II opioid drug. Start Date: 12/15/20 Status: Ordered Repeat number: 1 Colace sodium 100 mg oral capsule 100 mg, 1, capsule, By Mouth, 2 times a day, Refills 0, Maintenance, 12/15/20 3:45:00 PM EDT, Partial fill upon patient request if the prescription is for a schedule II opioid drug. Start Date: 12/15/20 Status: Ordered Repeat number: 1 levETIRAcetam 750 mg oral tablet 0 Refills, Maintenance, 08/12/24 11:00:00 AM EST, Partial fill upon patient request if the prescription is for a schedule II opioid drug. Start Date: 08/12/24 Status: Ordered Repeat number: 1 levETIRAcetam 750 mg oral tablet, extended release 4 tablet = 3,000 mg, By Mouth, Daily, # 120 tablet, 11 Refills, Maintenance, 09/01/24 3:02:00 PM EST, ER Tablet, [facility]/pharmacy #[id number], new formulatioon change, 175, cm, 08/12/24 10:58:00 EST, Height Start Date: 09/01/24 Stop Date: 08/27/25 Status: Ordered Quantity: 120.0 Unit: tablet Repeat number: 12 Milk of Magnesia Liquid 30 mL, By Mouth, 2 times a day, PRN Constipation, 0 Refills, Maintenance, 12/15/20 3:46:00 PM EDT, Suspension, Partial fill upon patient request if the prescription is for a schedule II opioid drug. Start Date: 12/15/20 Status: Ordered Repeat number: 1 pyridoxine 50 mg oral tablet 50 mg, 1, tablet, By Mouth, Daily, for 30 days, To counteract the side effects of Keppra, # 30 tablet, Refills 3, Tot. Refills 3, Acute 12/10/24 11:46:00 AM EDT, 08/12/24 11:46:00 AM EST, Route to Pharmacy Electronically, [facility]/pharmacy #[id number], Partial fill upon patient request if the prescription is for a schedule II opioid drug., 175, cm, 08/12/24 10:58:00 EST, Height Start Date: 08/12/24 Stop Date: 12/10/24 Status: Ordered Quantity: 30.0 Unit: tablet Repeat number: 4 pyridoxine 50 mg oral tablet 50 mg, 1, tablet, By Mouth, Daily, for 30 days, To counteract the side effects of Keppra, # 30 tablet, Refills 3, Tot. Refills 3, Acute 04/09/25 11:46:00 AM EDT, 12/10/24 11:46:00 AM EDT, Route to Pharmacy Electronically, [facility]/pharmacy #[id number], Partial fill upon patient request if the prescription is for a schedule II opioid drug., 175, cm, 08/12/24 10:58:00 EST, Height Start Date: 12/10/24 Stop Date: 04/09/25 Status: Ordered Quantity: 30.0 Unit: tablet Repeat number: 4 Tylenol 325 mg oral tablet 650 mg, 2, tablet, By Mouth, Every 6 hours, PRN, Refills 0, Maintenance, Pain , Mild, 12/15/20 3:45:00 PM EDT, Partial fill upon patient request if the prescription is for a schedule II opioid drug. Start Date: 12/15/20 Status: Ordered Repeat number: 1 Social History Social History Type Response Smoking Status Never smoker entered on: 04/02/16 Sex Sex Representation Male (finding) Patient Care team information Care Team Personnel Name: Wilder Rico DO Position: Reference Physician Member Role: PCP Address: [address] [place] [address] Wilder Rico [place], [place] [address] Telecom: Name: Zahraa Green RN Position: S RN Member Role: Primary Care Nurse Name: Shayna Spencer RN Position: S RN Member Role: Primary Care Nurse Name: Jayden Esquivel RN Position: S RN Member Role: Primary Care Nurse Care Team Related Persons Name: DEA ECHOLS Insurance Providers Guarantor name: JANN ECHOLS Health Plan Information #: 1 Payer: NA Member Number: NA Policy Number: NA Group Number: NA Health Plan Information #: 2 Payer: [employer] Member Number: NA Policy Number: NA Group Number: NA Health Plan Information #: 3 Payer: MEDICARE PART B OUTPT Member Number: NA Policy Number: NA Group Number: NA
--- OUTSIDE RECORDS SUMMARY | 2024-10-06 13:15 | XMS_ITS | Patient Health Record ---
Author Organization William Samuel MD Address [address] [place] [phone] Care Team Providers Care Collection Technician Name Role Phone William Samuel Primary Care [...] Problem Status W/U Status Risk Notes Problem 63490105 Sciatica (724.3) Active confirmed Problem 730473221 Dermatofibroma (D23.9) Active confirmed Problem 53355919 Lymphocytosis (D72.820) Active confirmed Problem 547945054 Onychomycosis (B35.1) Active confirmed Problem 366368544 Prostate cancer (C61) Active confirmed Problem Seizure disorder (346794969) Seizure disorder (G40.909) Active confirmed Problem 19263038 Carpal tunnel syndrome of left wrist (G56.02) Active confirmed Problem 164096688467047 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) Active confirmed Problem 73910697 Kidney stone on left side (N20.0) Active confirmed Problem 062507744 Cerebral hemorrhage (I61.9) Active confirmed Encounters Encounter Location Date Provider Diagnosis William Samuel MD [address] [place] [address] [phone] 10/13/2023 William Samuel MD [address] [place] [address] [phone] 10/13/2023 William Samuel MD [address] [place] [address] [phone] 02/16/2024 William Samuel Plan Of Treatment Future Test Test Name Order Date XR CHEST 2 VIEW PA & LAT 09/23/2019 Insurance Providers Payer Name Payer Address Payer Phone Subscriber Number Group Number Insured Name Patient Relationship to Insured Coverage Start Date Coverage End Date [employer] [address] [place] [address] [id number] Erik Reynolds Self - patient is the insured Medical (General) History Medical History History ICD Code Colonoscopy - 01/22/16 w/Dr. Mariusz love at 11 yrs
--- OUTSIDE RECORDS SUMMARY | 2024-10-06 13:15 | XMS_ITS | Clinical Summary ---
Author Organization [facility] it Address [address] [place] [address] Care Team Providers Care Lift Truck Mechanic Name Role Phone William Samuel MD Primary Care Provider Social History Tobacco Use Types Packs/Day Years [...] Influencers of Health Screening 07/03/2022 COVID-19 Vaccine (1 - 2023-2 5 season) 2024 Influenza Vaccine [...] age to complete this topic Care Teams Lift Truck Mechanic Relationship Specialty Start Date End Date William Samuel MD PCP - General Internal Medicine 03/16/18
--- OUTSIDE RECORDS SUMMARY | 2024-10-06 13:15 | XMS_ITS | Continuity of Care Document ---
Author Organization [facility] Address [address], [address], [address] [place] [phone]- Care Team Providers Care Piece Maker Name Role Phone Wilder Rico DO Primary Care Physician [phone] [place] [facility](s): 08/19/24 - 09/18/24 [facility] [address] [facility] [address]rd Floor, [address] [place] [address]- Encounter Type: Triage Allergies, Adverse Reactions, Alerts [...] Maintenance, 09/01/24 3:02:00 PM EST, ER Tablet, [facility]/pharmacy #[id number], new formulatioon change, 175, cm, 08/12/24 [...] 11:46:00 AM EST, Route to Pharmacy Electronically, [facility]/pharmacy #[id number], Partial fill upon patient request if [...] 11:46:00 AM EDT, Route to Pharmacy Electronically, [facility]/pharmacy #[id number], Partial fill upon patient request if [...] Position: Reference Physician Member Role: PCP Address: [address] [place] [address] Wilder Rico MD [place], [place] [address] Telecom: Name: Zahraa Green RN Position: S RN Member Role: Primary Care Nurse Name: Shayna Spencer RN Position: S RN Member Role: Primary Care Nurse Name: Jayden Esquivel RN Position: S RN Member Role: Primary Care Nurse Care Team Related Persons Name: DEA ECHOLS Insurance Providers Guarantor name: JANN CEHOLS Health Plan Information #: 1 Payer: NA Member Number: NA Policy Number: NA Group Number: NA Health Plan Information #: 2 Payer: [employer] Member Number: NA Policy Number: NA Group Number: NA Health Plan Information #: 3 Payer: MEDICARE PART B OUTPT Member Number: NA Policy Number: NA Group Number: NA
== END 2024-10-06 11:43 | disposition home or self-care (01) ==
LOC: HO.HMCSH 10:55
PROVIDERS: PCP Internal Medicine; Visit Provider Internal Medicine
DX: I10 Essential (primary) hypertension (principal)

== ENCOUNTER → 2024-10-06 10:55 | Outpatient (BNVA) | payer MEDICARE, SELFPAY | PROVIDERS: PCP Internal Medicine; Visit Provider Internal Medicine | DX: I10 Essential (primary) hypertension (principal) | CPT/HCPCS: 99212 ==

== ENCOUNTER 2024-11-05 11:30 | Outpatient (REF) | payer MEDICARE, SELFPAY ==
[2024-11-05 13:26] LABS: Appearance Urine Clear; Color Urine Yellow; Glucose Urine UA Negative (Negative); Leukocyte Esterase Urine Negative (Negative); Nitrite Urine Negative (Negative); Urine Blood Negative (Negative); Urine Ketones Negative (Negative); Urine Protein Negative (Neg-Trace)
--- OUTSIDE RECORDS SUMMARY | 2024-11-05 13:34 | XMS_ITS ---
Author Organization William Samuel MD Address [address] [place] [phone] Care Team Providers Care Way Inspector Name Role Phone William Samuel Primary Care Provider REASON FOR VISIT Medical Records Encounters Encounter Location Date Provider Diagnosis William Samuel MD [address] [place] [address] [phone] 02/16/2024 William Samuel Plan Of Treatment No Information Progress Notes * Erik ECHOLSDOB:1950 ( 73 yo M)Acc No.[id number]:02/16/2024 Patient:?Erik Echols :1950???Age:73 Y???Sex:Male Address:[address] [place] [address], [phone] * true * Date:? Generated for Thu jain/Dexter/eTransmitting on:?11/05/2024 01:33 PM EDT
--- OUTSIDE RECORDS SUMMARY | 2024-11-05 13:34 | XMS_ITS ---
Author Organization William Samuel MD Address [address] [place] [phone] Care Team Providers Care Installment Loan Collector Name Role Phone William Samuel Primary Care Provider REASON FOR VISIT annual visit Encounters Encounter Location Date Provider Diagnosis William Samuel MD [address] [place] [phone] 11/14/2023 William Samuel Plan Of Treatment No Information Progress Notes * RODOLFOErikDOB:1950 ( 74 yo M)Acc No.[id number]:11/14/2023 Progress Notes Patient:?Erik ECHOLS Provider:?William Samuel MD :1950???Age:73 Y???Sex:Male Tano e:11/14/2023 Address:[address] [place] [address] Subjective: * Chief Complaints: * ???1. Annual visit. * Medical History:? Objective: * Vitals:? Assessment: Plan: * Treatment: * * The named appointment provid er may or may not be the originator of this progress note, and it is not deemed complete until electronically signed by the appointment provider. Sign off status: Pending * Provider:?William Samuel MD Date:?0 11/14/2023 Generated for Printi ng/Faxing/eTransmitting on:?11/05/2024 01:33 PM EDT
--- OUTSIDE RECORDS SUMMARY | 2024-11-05 13:34 | XMS_ITS | Clinical Summary ---
Author Organization [facility] Address [address] [place] [address] Care Team Providers Care Tower Observer Name Role Phone William Samuel MD Primary Care Provider [phone] Allergies No known active allergies Medications No [...] of Treatment Not on file Care Teams Tower Observer Relationship Specialty Start Date End Date William Samuel MD [address] [place] [phone] PCP - General Internal Medicine 03/16/18
--- OUTSIDE RECORDS SUMMARY | 2024-11-05 13:34 | XMS_ITS ---
Author Organization William Samuel MD Address [address] [place] [phone] Care Team Providers Care School Bus Driver/Teacher Assistant Name Role Phone William Samuel Primary Care Provider [phone] REASON FOR VISIT yearly labs Encounters Encounter Location Date Provider Diagnosis William Samuel MD [address] [place] [phone] 10/24/2023 William Samuel Plan Of Treatment No Information Progress Notes * RODOLFOErikDOB:1950 ( 74 yo M)Acc No.[id number]:10/24/2023 Progress Note Patient:?Erik ECHOLS Provider:?William Samuel MD :1950???Age:73 Y???Sex:Male Tano e:10/24/2023 Address:[address] [place] [address] Subjective: * Chief Complaints: * ???1. Yearly labs. * Medical History:? Objective: * Vitals:? Assessment: Plan: * Treatment: * * The named appointment provid er may or may not be the originator of this progress note, and it is not deemed complete until electronically signed by the appointment provider. Sign off status: Pending * Provider:?William Samuel MD Date:?0 10/24/2023 Generated for Printi ng/Faxing/eTransmitting on:?11/05/2024 01:33 PM EDT
--- OUTSIDE RECORDS SUMMARY | 2024-11-05 13:34 | XMS_ITS | Patient Health Record ---
Author Organization William Samuel MD Address [address] [place] [phone] Care Team Providers Care Biophysics Scientist Name Role Phone William Samuel Primary Care Provider [phone] Allergies No Known Allergies Reason For Referral [...] Problem Status W/U Status Risk Notes Problem 96478618 Sciatica (724.3) Active confirmed Problem 230887906 Dermatofibroma (D23.9) Active confirmed Problem 40266731 Lymphocytosis (D72.820) Active confirmed Problem 081557424 Onychomycosis (B35.1) Active confirmed Problem 791459103 Prostate cancer (C61) Active confirmed Problem Seizure disorder (100781372) Seizure disorder (G40.909) Active confirmed Problem 52648956 Carpal tunnel syndrome of left wrist (G56.02) Active confirmed Problem 147558200511731 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) Active confirmed Problem 30953142 Kidney stone on left side (N20.0) Active confirmed Problem 750688879 Cerebral hemorrhage (I61.9) Active confirmed Encounters Encounter Location Date Provider Diagnosis William Samuel MD [address] [place] [phone] 02/16/2024 William Samuel Plan Of Treatment Future Test Test Name Order Date XR CHEST 2 VIEW PA & LAT 09/23/2019 Insurance Providers Payer Name Payer Address Payer Phone Subscriber Number Group Number Insured Name Patient Relationship to Insured Coverage Start Date Coverage End Date [employer] [address] [place] [address] [id number] Erik Reynolds Self - patient is the insured Medical (General) History Medical History History ICD Code Colonoscopy - 01/22/16 w/Dr. Mariusz love at 11 yrs
--- OUTSIDE RECORDS SUMMARY | 2024-11-05 13:34 | XMS_ITS | Clinical Summary ---
Author Organization [facility] it Address [address] [place] [address] Care Team Providers Care Database Designer Name Role Phone William Samuel MD Primary [...] 2024 Influenza Vaccine (#1) 2024 RSV Immunization Adult Patie nts (1 - 1-dose 75+ series) 10/07/2026 HIB [...] age to complete this topic Care Teams Database Designer Relationship Specialty Start Date End Date William Samuel MD PCP - General Internal Medicine 03/16/18
[2024-11-05 13:38] LABS: Hematocrit 43.9 % (42.0-52.0); Hemoglobin 14.8 g/dl (14.0-18.0); Mean Corpuscular HGB Conc 33.7 g/dl (31.0-36.0); Mean Corpuscular Hemoglobin 29.6 pg (27.0-33.0); Mean Corpuscular Volume 87.8 fL (80.0-98.0); Mean Platelet Volume 10.2 fL (9.4-12.4); Platelet Count 187 X10*3/uL (160-400); Red Cell Distribution Width 13.2 % (11.0-16.0); White Blood Count 5.3 X10*3/uL (4.8-10.8)
[2024-11-05 14:17] LABS: Erythrocyte Sedimentation Rate 10 MM/HR (0-15)
[2024-11-05 14:37] LABS: Alanine Aminotransferase 27 U/L (0-40); Alkaline Phosphatase 73 U/L (39-117); Anion Gap 12 (12-20); Aspartate Amino Transferase 33 U/L (5-37); Bilirubin Direct 0.2 mg/dL (0.0-0.5); Bilirubin Total 0.6 mg/dL (0.0-1.0); Blood Urea Nitrogen 12 mg/dL (9-16); Calcium 9.4 mg/dL (8.4-10.2); Carbon Dioxide 26 mmol/L (22-29); Chloride 109 mmol/L (96-108); Cholesterol 165 mg/dL (<200); Estimated Glomerular Filt Rate > 60; Glucose Random 66 mg/dL (60-115); HDL Cholesterol 58 mg/dL (>40); LDL Cholesterol Calculated 92 mg/dL (<100); Potassium 3.8 mmol/L (3.3-5.1); Sodium 143 mmol/L (135-145); Total Protein 7.6 g/dL (6.5-8.0); Triglycerides 76 mg/dL (<150)
[2024-11-05 14:42] LABS: Prostate Specific Antigen Scr 0.88 ng/mL (<0.05-4.0)
[2024-11-05 14:45] LABS: Thyroid Stimulating Hormone 0.95 uIU/mL (0.32-4.0)
== END 2024-11-05 11:31 | disposition home or self-care (01) ==
LOC: HO.HMGCLDS 11:30
PROVIDERS: PCP Internal Medicine; Visit Provider Internal Medicine
DX: I61.9 Nontraumatic intracerebral hemorrhage, unspecified (principal); Z12.5 Encounter for screening for malignant neoplasm of prostate
CPT/HCPCS: 36415; 80048; 80061; 80076; 81003; 84153; 84443; 85027; 85652

== ENCOUNTER 2025-01-12 09:07 | Outpatient (AMB) | payer MEDICARE, SELFPAY ==
--- NOTE | 2025-01-12 09:10 | MHC.PC.OV ---
Vital Signs 01/12/25 09:11 Height 5 ft 7 in Weight 176 lb BMI 27.6 BP 127/71 Respiration 14 Pulse 67 Pulse Source Pulse Oximeter Temp 97.5 F Temp Source Temporal Artery Scan Pulse Oximetry (%) 95 Oxygen Delivery Method Room Air Intake Visit Reasons: follow up Fire Extinguisher Sprinkler Inspector Required: No Accompanied by: Self / Same As Patient Allergies No Known Allergies [No Known Allergies*] Allergy (Verified 01/12/25 09:30) Medication List - Last Reviewed 01/12/25 by TERRY Jackson levetiracetam 3,000 mg PO BID lisinopril 10 mg PO DAILY pyridoxine (vitamin B6) 50 mg PO DAILY Tobacco use date assessed: 01/12/25 Fall risk assessment: No Falls in past year Last assessed Fall Risk: 01/12/25 Dental Screening Dental Screen Date: 01/12/25 Did you have a dental visit in the last 12 months?: Yes Did you have a dental problem in the last 6 months where you did not have access to dental care?: No Was dental information given to patient?: Patient has dentist HPI follow up HPI Details The patient is a 74-year-old male presenting to establish a new primary care provider due to Dr. Rico retired along with a follow-up for seizure disorder, cerebrovascular accident, cognitive impairment post-stroke, and hypertension. He has been managing his seizure disorder with Keppra, changing recently to an extended-release formation at 3000 mg once daily from twice-daily 1500 mg dosing under his neurologist's advice. The patient's seizure disorder followed a hemorrhagic stroke in 2020. Cognitive impairment has persisted following this stroke, characterized by occasional speech disturbances and issues with cognitive processing that exacerbate under stress. Cognitively, the patient has noted some improvement with the addition of Pyridoxine while maintaining stable mood. Diagnostic imaging from 2022 ruled out further cerebral hemorrhage and suggested amyloid angiopathy as a probable cause of the initial stroke. A baseline EEG noted cortical slowing without active seizure activity. Currently, he is undergoing speech therapy to support cognitive rehabilitation. Blood pressure management was addressed with the initiation of Lisinopril. The patient's recent laboratory assessments, including CBC, liver enzymes, PSA, and TSH, returned within normal ranges. The patient's A1c level was not on record, prompting the need for evaluation to confirm non-diabetic status. Social History - Formerly employed in [employer], had to cease work after a stroke in 2020. - Lives at home with , who is named as his healthcare proxy. - Has five children, some of whom reside outside the state. - The patient has a history of driving restrictions due to cognitive issues post-stroke. [facility] Medical History (Updated 01/12/25 @ 11:15 by Alma Santos PA-C) Overweight with body mass index (BMI) of 27 to 27.9 in adult Cognitive impairment Patient has healthcare proxy (~01/12/25) Full code status (~01/12/25) Colon cancer screening Establishing care with new doctor, encounter for Memory loss Seizure disorder History of prostate cancer Essential hypertension CVA (cerebrovascular accident due to intracerebral hemorrhage) Surgical History H/O prostatectomy History of colonoscopy (~01/22/16) Family History Father No problems noted. Mother No problems noted. Social History Housing: House Alcohol intake: current Alcohol intake frequency: does not drink Patient Tobacco Use Status: Never used Tobacco service: No Current occupational status: employed Cognitive needs: No Hearing needs: No Vision needs: Yes (rx glasses) Questionnaire PHQ-9 Over the last 2 weeks, how often have you been bothered by any of the following problems? 1. Little interest or pleasure in doing things: not at all 2. Feeling down, depressed, or hopeless: not at all 3. Trouble falling or staying asleep, or sleeping too much: not at all 4. Feeling tired or having little energy: not at all 5. Poor appetite or overeating: not at all 6. Feeling bad about yourself - or that you are a failure or have let yourself or your family down: not at all 7. Trouble concentrating on things, such as reading the newspaper or watching television: not at all 8. Moving or speaking so slowly that other people could have noticed. Or the opposite - being so fidgety or restless that you have been moving around a lot more than usual: not at all 9. Thoughts that you would be better off or of hurting yourself in some way: not at all Total score: 0 Depression Screening Interpretation: Negative Depression Screening Done: Yes 97516 - PHQ-9 Billing: Yes Source: Developed by Drs. Wilder Heller, Minda Victoria, Gera Calix and colleagues, with an educational troy from [employer]. Thrive Questionnaire Date Thrive assessed: 01/12/25 I am a: Patient What is your living situation today?: I have a steady place to live Within the past 12 months, did the food you bought not last and you didn't have the money to get more?: Never true Within the past 12 months, did you worry whether your food would run out before you got money to buy more?: Never true Do you have trouble paying for medicines?: No Do you have trouble getting transportation to medical appointments?: No Do you have trouble paying your heating and electricity bill?: No Do you have trouble taking care of your child, family member or friend?: No Do you have trouble with day-to-day activities such as bathing, preparing meals, shopping, managing finances, etc.?: No Are you currently unemployed and looking for a job?: No Are you interested in more education?: No Please select the resources that you would like help with: None THRIVE Score: 0 AUDIT C Alcohol Use Questionnaire (AUDIT-C) 1. How often do you have a drink containing alcohol?: Never 3. How often do you have six or more drinks on one occasion?: Never Total Score: 0 Score Reviewed/Action Taken: No DOMINIQUE-7 AMB Questionnaire DOMINIQUE-7 Date DOMINIQUE - 7 assessed: 01/12/25 Feeling nervous, anxious, or on edge: 0 = Not at all Not being able to stop or control worryin = Not at all Worrying too much about different things: 0 = Not at all Trouble relaxin = Not at all Being so restless that it is hard to sit still: 0 = Not at all Becoming easily annoyed or irritable: 0 = Not at all Feeling afraid as if something awful might happen: 0 = Not at all Total DOMINIQUE-7 score (0-4 normal; 5-9 mild; 10-14 moderate; 15-21 severe): 0 Source: Developed by Drs. Wilder LMinda Amaral Kurt Kroenke and colleagues, with an educational troy from [employer]. DOMINIQUE-7 Assessment Billing DOMINIQUE-7 Assessment Tool: DOMINIQUE-7 Assessment 32043 Review of Systems Const Details: - Neurological: Reports cognitive impairment, no recent seizures, occasional speech disturbances. - Cardiovascular: Denies chest pain. - Respiratory: Denies shortness of breath. - Gastrointestinal: Denies abdominal pain, black or bloody stools. - Musculoskeletal: Denies joint pain or swelling. - Endocrine: Denies diabetes, no abnormalities reported. - Genitourinary: Denies urinary symptoms. - Hematological: Denies bruising or bleeding tendencies. - General: Denies recent falls, gait disturbances, or visual changes. Physical exam (Primary Care) Vital Signs: Last Vital Signs Temp 97.5 F 01/12/25 09:11 Pulse 67 01/12/25 09:11 Resp 14 01/12/25 09:11 BP 127/71 01/12/25 09:11 Pulse Ox 95 01/12/25 09:11 Oxygen Delivery Method Room Air 01/12/25 09:11 Care Plan Goal for BP management: <140/90 at Goal BMI result Body Mass Index 27.6 BMI Assessment/Plan discussion: High BMI High, discussed plan: lifestyle, weight reduction, dietary, physical activity and alcohol moderation Tobacco/Smoking Status: Tobacco use Status Tobacco use date assessed 01/12/25 01/12/25 09:18 Patient Tobacco Use Status Never used Tobacco 01/12/25 09:24 PHQ-9: PHQ-9 Score PHQ-9: Total score 0 01/12/25 10:04 Depression Screening Interpretation: Negative Thrive Assessment: Date of Thrive Assessment Date Thrive assessed 01/12/25 01/12/25 09:18 Advance Care Planning discussion: Completed/Scanned Date of discussion: 01/12/25 Who was present: Patient, ANABEL Marquez Forms completed: Health Care Proxy and MOLST Time spent: 1-15 minutes, not on file Actual minutes spent: 15 Did not discuss due to Cultural/Spiritual beliefs: No Const Other: Appearance: Alert. Oriented to self at baseline. Denies any acute complaints. No acute distress. Head: Normal external exam. Normocephalic. Atraumatic. Eyes: Pupils are equal, round, and reactive to light. Extraocular movements intact. Conjunctiva and sclera normal. Eyelids normal. Ears: External auditory canal normal. Tympanic membranes normal. Throat: Pharynx normal. Uvula midline. Moist mucous membranes. Neck: Normal inspection. Neck supple. Full range of motion. No adenopathy. Thyroid Normal. No meningeal signs. No neck mass noted. Cardiovascular: Normal heart rate and rhythm. Heart sound normal. No murmurs noted. Pulses normal throughout. Respiratory: No respiratory distress. Painless inspiration. Breath sounds normal. No wheezes/rales/rhonchi noted. Chest nontender. No accessory muscle usage noted or decreased air movement noted. Abdomen: Soft and nontender. Bowel sounds normal in all 4 quadrants. No distention noted. No organomegaly noted. No visible injury noted. Back: No costovertebral angle tenderness. Full range of motion noted. Skin: Skin warm and dry. Normal skin color. Normal skin turgor. No rashes/lesions/lacerations noted. Extremities: No lower extremity edema. Extremities exhibit normal range of motion. Extremities nontender. Neuro: Oriented to self at baseline. No motor deficit. No sensory deficit. Reflexes normal. Results AMB Hemoglobin A1c AMB Hemoglobin A1c 5.5 % Last Edit by TERRY Jackson on 01/12/25 10:01 Results Reviewed Results Reviewed: Laboratory Last Values Hgb A1c (Clinic) 5.5 % (4.0-6.0) 01/12/25 09:57 - Lab tests: CBC, renal function, liver enzymes, PSA, TSH, all within normal limits. - MRI (2022): No new hemorrhages, suggestive of amyloid angiopathy. - EEG: Slowing in the left posterior cortex, no active seizure activity. Coding Level of Care Code Est Pt Level 4 (91065) Complex EM visit Add On G2211 Diagnoses Establishing care with new doctor, encounter for Z76.89 Seizure disorder G40.909 CVA (cerebrovascular accident due to intracerebral hemorrhage) I61.9 Cognitive impairment R41.89 Essential hypertension I10 Full code status Z78.9 Patient has healthcare proxy Z78.9 Overweight with body mass index (BMI) of 27 to 27.9 in adult E66.3; Z68.27 Colon cancer screening Z12.11 Additional Codes PHQ-9 - 72675 - PHQ-9 Billing: Yes ([id number]) DOMINIQUE-7 Assessment Billing - DOMINIQUE-7 Assessment Tool: DOMINIQUE-7 Assessment 48999 ([id number]) Vital Signs *Quality* - Advance Care Planning discussion: Completed/Scanned ([id number]) Vital Signs *Quality* - Time spent: 1-15 minutes, not on file ([id number]) Time Spent (min) 55 Assessment & Plan Assessment & Plan (1) Establishing care with new doctor, encounter for: Code(s): Z76.89 - Persons encountering health services in other specified circumstances Category: Medical (2) Seizure disorder: Code(s): G40.909 - Epilepsy, unspecified, not intractable, without status epilepticus Category: Medical Plan: The patient's seizure disorder management includes long-acting Keppra at 3000 mg daily, with Pioridiodine added for cognitive support. Continued monitoring of seizure activity and cognitive impacts is necessary. Condition is chronic and stable continue to monitor. (3) CVA (cerebrovascular accident due to intracerebral hemorrhage): Code(s): I61.9 - Nontraumatic intracerebral hemorrhage, unspecified Category: Medical Plan: Following a 2020 hemorrhagic stroke, management includes regular neurologic follow-ups and speech therapy for improvement in post-stroke cognitive deficits. Condition is chronic and stable continue to monitor. (4) Cognitive impairment: Code(s): R41.89 - Other symptoms and signs involving cognitive functions and awareness Category: Medical Plan: The patient is receiving speech therapy and taking Pioridiodine. Participation in rehabilitative therapy and cognitive aids is encouraged. Condition is chronic and stable continue to monitor. (5) Essential hypertension: Code(s): I10 - Essential (primary) hypertension Category: Medical Plan: Blood pressure managed with Lisinopril, aiming for target control. Regular monitoring for therapeutic effectiveness is recommended. Condition is chronic and stable continue to monitor. (6) Full code status: Onset Date: ~01/12/25 Code(s): Z78.9 - Other specified health status Category: Medical Plan: Patient filled out MOLST form today and is a full code. Amberly Connors is healthcare proxy. MOLST form and healthcare proxy form scanned into the patient's chart and patient given original to place on refrigerator. Instructed patient to discuss his advanced care planning wishes with his family. Patient understands agrees with this plan. (7) Patient has healthcare proxy: Onset Date: ~01/12/25 Code(s): Z78.9 - Other specified health status Category: Social Hx Plan: Patient filled out MOLST form today and is a full code. Amberly Connors is healthcare proxy. MOLST form and healthcare proxy form scanned into the patient's chart and patient given original to place on refrigerator. Instructed patient to discuss his advanced care planning wishes with his family. Patient understands agrees with this plan. (8) Overweight with body mass index (BMI) of 27 to 27.9 in adult: Code(s): E66.3 - Overweight; Z68.27 - Body mass index [BMI] 27.0-27.9, adult Category: Medical Plan: Patient improved diet and exercise regimen. Condition is chronic and stable will continue to monitor. (9) Colon cancer screening: Code(s): Z12.11 - Encounter for screening for malignant neoplasm of colon Category: Medical Plan: Patient was unsure when he had a colonoscopy although it appears that he had a colonoscopy on 01/22/2016 therefore GI referral canceled at this time. Patient is on 10 year plan is due for colonoscopy next year. Plan Plan Patient was informed and verbally consented to the use of an ambient scribe for clinic note documentation during this visit. 1. Seizure Disorder The patient's seizure disorder management includes long-acting Keppra at 3000 mg daily, with Pioridiodine added for cognitive support. Continued monitoring of seizure activity and cognitive impacts is necessary. 2. Cerebrovascular Accident Following a 2020 hemorrhagic stroke, management includes regular neurologic follow-ups and speech therapy for improvement in post-stroke cognitive deficits. 3. Cognitive Impairment The patient is receiving speech therapy and taking Pioridiodine. Participation in rehabilitative therapy and cognitive aids is encouraged. 4. Essential Hypertension Blood pressure managed with Lisinopril, aiming for target control. Regular monitoring for therapeutic effectiveness is recommended. During the visit, we discussed details of the patient's seizure disorder management, focusing on the updated Keppra dosing regimen. We reviewed the therapeutic goals for the long-acting formulation and cognitive support strategies via Pioridiodine. The likelihood of cognitive improvements through continued speech therapy sessions was highlighted. The potential underlying etiology of the hemorrhagic stroke, identified as amyloid angiopathy, was addressed given findings from the recent imaging and EEG. For the hypertension management plan, we discussed maintaining blood pressure within optimal limits through Lisinopril therapy. We covered the importance of adhering to the established therapeutic regimen and monitoring cognitive and neurological progress, particularly under stress. Referrals to speech therapy will continue to support cognitive rehabilitation post-stroke. Orders: Orders AMB Hemoglobin A1c Today Z13.9 - Encounter for screening, unspecified Patient Instructions: - Continue taking Keppra as previously directed, with four 750 mg tablets once daily. - Maintain Lisinopril as prescribed, daily. - Attend ongoing speech therapy appointments for cognitive support. - Monitor blood pressure at home if possible, and note any significant changes. - Follow up on the A1c test results and confirm non-diabetic status. - Keep an updated list of all medications and report any new symptoms. - Ensure your is aware of your healthcare proxy and related decisions. - Schedule and attend all follow-up appointments as directed.
[2025-01-12 09:11] VITALS: BP 127/71; PULSE 67; RESP 14; TEMP 36.4; O2SAT 95; BMI 27.6
--- OUTSIDE RECORDS SUMMARY | 2025-01-12 09:40 | XMS_ITS | Clinical Summary ---
Author Organization [facility] Address [address] [place] [address] Care Team Providers Care Biogeographer Name Role Phone William Samuel MD Primary Care Provider [phone] Allergies No known active allergies Medications No [...] of Treatment Not on file Care Teams Biogeographer Relationship Specialty Start Date End Date William Samuel MD [address] [place] [phone] PCP - General Internal Medicine 03/16/18
== END 2025-01-12 09:59 | disposition home or self-care (01) ==
LOC: HO.HMCSH 09:07
PROVIDERS: PCP Internal Medicine; Visit Provider Physician Assistant Medical
DX: Z76.89 Persons encountering health services in other specified circumstances (principal); G40.909 Epilepsy, unspecified, not intractable, without status epilepticus; I61.9 Nontraumatic intracerebral hemorrhage, unspecified; R41.89 Other symptoms and signs involving cognitive functions and awareness; I10 Essential (primary) hypertension; Z78.9 Other specified health status; E66.3 Overweight; Z68.27 Body mass index [BMI] 27.0-27.9, adult; Z12.11 Encounter for screening for malignant neoplasm of colon; Z13.9 Encounter for screening, unspecified; Z00.00 Encounter for general adult medical examination without abnormal findings

== ENCOUNTER → 2025-01-12 09:07 | Outpatient (BNVA) | payer MEDICARE, SELFPAY | PROVIDERS: PCP Internal Medicine; Visit Provider Physician Assistant Medical | DX: I10 Essential (primary) hypertension (principal); G40.909 Epilepsy, unspecified, not intractable, without status epilepticus; I69.328 Other speech and language deficits following cerebral infarction; I69.319 Unspecified symptoms and signs involving cognitive functions following cerebral infarction; E66.3 Overweight; Z78.9 Other specified health status; Z68.27 Body mass index [BMI] 27.0-27.9, adult; Z76.89 Persons encountering health services in other specified circumstances; Z79.899 Other long term (current) drug therapy | CPT/HCPCS: 83036; 96127; 99212 ==